=== PATIENT | female | born 1960 | race Caucasian/White ===

== ENCOUNTER 2022-02-05 01:28 | Day surgery (SDC) | payer BC, SELFPAY ==
[2022-01-18 11:13] VITALS: BMI 26.2
--- NOTE | 2022-02-02 14:12 | PM.HPGS ---
History of Present Illness History of Present Illness Consent: Risks, benefits, and alternatives have been discussed and questions answered. Patient agrees to proceed with procedure. Chief complaint: neoplasm screening Narrative: Maria T Chacon is a 61 year old female Referred for colon cancer screening. Her last colonoscopy was 10 years ago. Review of Systems Review of Systems: All systems reviewed & are unremarkable except as noted in HPI and below PMFSH Family History Family History Father Family history of lung cancer Social History Social History Smoking status: Never smoker Alcohol intake: never Substance use: never Substance use type: does not use Living arrangements: with family Spiritual care concerns: No Meds Home Medications and Allergies Home Medications Medication Instructions Recorded Confirmed Type aspirin 81 mg capsule 81 mg PO DAILY 01/18/22 02/05/22 History estradiol 1 mg tablet 1 mg PO DAILY 01/18/22 02/05/22 History multivitamin with minerals-folic 1 tablet PO DAILY 01/18/22 02/05/22 History acid 0.4 mg tablet omega-3 fatty acids 1 cap PO DAILY 01/18/22 02/05/22 History simvastatin 20 mg tablet 20 mg PO DAILY 01/18/22 02/05/22 History Allergies Allergy/AdvReac Type Severity Reaction Status Date / Time No Known Allergies Verified 02/05/22 06:46 Exam Const: General: alert Orientation/consciousness: patient oriented x3 Resp: Auscultation: clear to auscultation bilaterally Cardio: Rate: regular rate Rhythm: regular rhythm GI: GI Palp: Yes Soft to palpation and No Tenderness to palpation present (GI) Neuro: General: patient oriented x3 Assessment and Plan Assessment and plan (1) Colon cancer screening: Code(s): Z12.11 - Encounter for screening for malignant neoplasm of colon Status: Acute Assessment and Plan: Colonoscopy with possible biopsy or polypectomy or cautery or injection of substances.
[2022-02-05 06:49] VITALS: BP 115/60; PULSE 57; RESP 18; TEMP 36.6; O2SAT 99; BMI 26.8
[2022-02-05] MEDS: LACTATED RINGERS 1,000 ML 150 ML IV CONT (06:52)
--- NOTE | 2022-02-05 07:35 | WPDANESEPPF ---
Anes - Initial Pre Proc Eval Procedure: Operation Date: 02/05/22 08:00 Proposed Procedures p Screening Colonoscopy - Bassem Hahn MD Date/Time: 02/05/22 07:35 Surgeon: Bassem Hahn MD Pre Op Diagnosis: neoplasm screening Patient Data Age: 61 Gender: F Height: 1.57 m Weight: 66.5 kg Last Vital Signs Temp 97.8 F 02/05/22 06:49 Pulse 57 L 02/05/22 06:49 Resp 18 02/05/22 06:49 BP 115/60 02/05/22 06:49 Pulse Ox 99 02/05/22 06:49 O2 Del Method Room Air 02/05/22 06:49 Allergies Allergy/AdvReac Type Severity Reaction Status Date / Time No Known Allergies Verified 02/05/22 06:46 Home Medications Medication Instructions Recorded Confirmed Type aspirin 81 mg capsule 81 mg PO DAILY 01/18/22 02/05/22 History estradiol 1 mg tablet 1 mg PO DAILY 01/18/22 02/05/22 History multivitamin with minerals-folic 1 tablet PO DAILY 01/18/22 02/05/22 History acid 0.4 mg tablet omega-3 fatty acids 1 cap PO DAILY 01/18/22 02/05/22 History simvastatin 20 mg tablet 20 mg PO DAILY 01/18/22 02/05/22 History Patient hx anesthesia problems: none Family hx anesthesia problems: none Results Review: All pre-operative results and documents have been reviewed as part of the pre-operative evaluation. [facility] Family History Family History Father Family history of lung cancer Social History Social History Smoking status: Never smoker Alcohol intake: never Substance use: never Substance use type: does not use Living arrangements: with family Spiritual care concerns: No Anes - Eval Final PreProcedure Day of Procedure 02/05/22 07:35 Patient weight: normal Heart: regular rate and rhythm Lungs: clear to auscultation Airway: Mallampati scale class II Neurological: alert and oriented Last oral intake: >/= 8 hours ASA classification: II Emergent: no Anesthetic plan: proceed Anesthesia type and monitoring: general GIVS and standard monitoring Results Review: All pre-operative results and documents have been reviewed as part of the pre-operative evaluation. Informed Consent: The patient's anesthetic plan and its attendant risks and benefits were discussed with the patient/family/POA. Questions were solicited and answers provided to the satisfaction of the patient/family/POA.
[2022-02-05 08:15] VITALS: BP 112/62; PULSE 58; RESP 16; O2SAT 100
[2022-02-05 08:25] VITALS: BP 114/56; PULSE 68; RESP 24; O2SAT 100
[2022-02-05 08:35] VITALS: BP 126/70; PULSE 53; RESP 14; O2SAT 100
== END 2022-02-05 08:40 | disposition home or self-care (01) ==
PROVIDERS: Visit Provider Internal Medicine Gastroenterology
PROC: 0DJD8ZZ Inspection of Lower Intestinal Tract, Via Natural or Artificial Opening Endoscopic (ICD-10-PCS; CPT 45378; principal; 2022-02-05 08:00)
DX: Z12.11 Encounter for screening for malignant neoplasm of colon (principal); Z79.82 Long term (current) use of aspirin
CPT/HCPCS: 45378; J2704; J7120